=== PATIENT | male | born 1970 | race Caucasian/White ===

== ENCOUNTER → 2016-06-17 | Outpatient (CLI) | payer MEDICARE ==
[2016-06-17 11:13] LABS: BUN/CREATININE RATIO 13 (0-10)
== END ==
LOC: LAB 10:04
PROVIDERS: Internal Medicine Cardiovascular Disease
DX: I25.10 Atherosclerotic heart disease of native coronary artery without angina pectoris (principal)
CPT/HCPCS: 36415; 80053; 80061

== ENCOUNTER → 2020-06-23 | Outpatient (CLI) | payer OTHER | LOC: RAD 11:19 | DX: M25.561 Pain in right knee (principal) | CPT/HCPCS: 73564 ==

== ENCOUNTER → 2021-01-28 | Outpatient (CLI) | payer OTHER | LOC: RAD 09:28 | DX: M79.672 Pain in left foot (principal) | CPT/HCPCS: 73630 ==

== ENCOUNTER → 2021-06-08 | Outpatient (CLI) | payer OTHER ==
[2021-06-08 09:35] LABS: HEMOGLOBIN 17.4 gm/dl (14.0-17.5); RED BLOOD COUNT 5.35 M/UL (4.20-5.50); WHITE BLOOD COUNT 16.5 K/UL (4.5-11.0)
[2021-06-08 09:53] LABS: BUN/CREATININE RATIO 15 (0-10)
== END ==
LOC: LAB 09:04
PROVIDERS: Internal Medicine Cardiovascular Disease
DX: I25.10 Atherosclerotic heart disease of native coronary artery without angina pectoris (principal)
CPT/HCPCS: 36415; 80053; 80061; 85025

== ENCOUNTER → 2021-06-10 | Outpatient (CLI) | payer OTHER | LOC: HEART 5 09:00 | DX: I25.10 Atherosclerotic heart disease of native coronary artery without angina pectoris (principal); I25.2 Old myocardial infarction; I07.1 Rheumatic tricuspid insufficiency | CPT/HCPCS: 93306 ==